=== PATIENT | female | born 1975 | race Caucasian/White ===

== ENCOUNTER 2019-04-27 09:34 | Outpatient (CLI) | payer OTHER, SELFPAY ==
[2019-04-27 10:30] LABS: Hemoglobin 13.1 g/dL (12.0-15.0)
== END 2019-04-27 09:35 | disposition home or self-care (01) ==
PROVIDERS: Anesthesiology; Visit Provider Obstetrics & Gynecology
DX: Z01.818 Encounter for other preprocedural examination (principal)
CPT/HCPCS: 36415; 85014; 85018; 86850; 86900; 86901

== ENCOUNTER 2019-05-06 01:21 | Day surgery (SDC) | payer OTHER, SELFPAY ==
[2019-04-21 09:12] VITALS: BMI 30.2
[2019-05-06] VITALS (16 sets, daily range): BP systolic 88–116; BP diastolic 46–67; PULSE 62–87; RESP 10–18; TEMP 36.3–37.7; O2SAT 97–100
--- NOTE | 2019-05-06 06:44 | WPDANESEPPF ---
Anes - Initial Pre Proc Eval Procedure: Operation Date: 05/06/19 07:30 Proposed Procedures p Total Laparoscopic Hysterectomy with Bilateral Salpingo-Oophorectomy - Kiran Payton MD Date/Time: 05/06/19 06:44 Surgeon: Kiran Payton MD Pre Op Diagnosis: Menometrorrhagia, Leiomyoma of the Uterus Patient Data Age: 43 Gender: F Height: 5 ft 4 in Weight: 80 kg Allergies Allergy/AdvReac Type Severity Reaction Status Date / Time No Known Allergies Allergy Verified 04/21/19 09:10 Home Medications Medication Instructions Recorded Confirmed Type ibuprofen 200 mg PO Q6H PRN 04/21/19 04/21/19 History Patient hx anesthesia problems: post op nausea/vomiting Family hx anesthesia problems: none PMFSH Past Medical History Medical History Anxiety Hx of migraines Anes - Eval Final PreProcedure Day of Procedure 05/06/19 06:44 Patient weight: obese Heart: regular rate and rhythm Lungs: clear to auscultation Airway: Mallampati scale class II Neurological: alert and oriented Last oral intake: >/= 8 hours ASA classification: II Emergent: no Anesthetic plan: proceed Anesthesia type and monitoring: general ETT and standard monitoring Informed Consent: The patient's anesthetic plan and its attendant risks and benefits were discussed with the patient/family/POA. Questions were solicited and answers provided to the satisfaction of the patient/family/POA.
[2019-05-06] MEDS: LACTATED RINGERS 1,000 ML 30 ML IV CONT ×2 (06:45→11:18)
[2019-05-06] MEDS: IBUPROFEN IV 800 MG/200 ML 800 MG/200 ML BAG 400 MG IVPB (07:00)
[2019-05-06] MEDS: SCOPOLAMINE 1.5 MG PATCH TRANSDERM (07:00)
--- NOTE | 2019-05-06 07:54 | WPDHPUPDATE1 ---
History and Physical Update Update Date/Time: 05/06/19 07:54 History and Physical has been reviewed, including an updated exam of the patient. There are NO changes in the patient's condition. Risks, benefits, and alternatives have been discussed and questions answered. Patient agrees to proceed with procedure.
--- NOTE | 2019-05-06 07:55 | WPDHPUPDATE1 ---
History and Physical Update Update Date/Time: 05/06/19 07:55 History and Physical has been reviewed, including an updated exam of the patient. There are NO changes in the patient's condition. Risks, benefits, and alternatives have been discussed and questions answered. Patient agrees to proceed with procedure.
[2019-05-06] MEDS: ceFAZolin 2 GM/D5W 50 ML 2 GM/50 ML BAG IVPB (07:58)
--- NOTE | 2019-05-06 11:19 | PM.PROC ---
Procedure Note - Detailed Date of procedure: 05/06/19 Pre-op diagnosis: Menometrorrhagia, Leiomyoma of the Uterus Myoma Post-op diagnosis: same Procedure performed: Total laparoscopic hysterectomy. Description of procedure: The patient was taken to the operating room. She was prepped and draped in the dorsal lithotomy position. A speculum was placed in the vagina. The cervix was grasped with a tenaculum. Stay sutures were placed at 3 and 9:00 a.m. of 0 Vicryl. The stay sutures were brought through the Cheri up. The LILY manipulator was placed in the vagina with a fixed Cheri cup. The cup was then pushed up around the cervix. The sutures were tied to the handle of the LILY manipulator. A 5 mm incision was made on the abdominal skin of the left upper quadrant using a scalpel. A 5 mm trocar was inserted into the intra-abdominal cavity under direct visualization the scope. Pneumoperitoneum was achieved. An 11 mm incision was made in the left lower quadrant of the abdomen with a scalpel. A 11 mm trocar was inserted into the intra-abdominal cavity under direct visualization the scope. A 5 mm periumbilical incision was made. A 5 mm scope was placed into the intra-abdominal cavity under direct visualization of the scope. The suspensory ligament of the ovary was cauterized and transected with ligature cautery in a bilateral fashion. The fallopian tubes were cauterized and transected in a bilateral fashion with LigaSure cautery. The round ligaments were cauterized and transected in bilateral fashion with LigaSure cautery. The round ligaments were cauterized and transected bilaterally with LigaSure cautery. The broad ligaments were cauterized and transected along the lateral aspects of the uterus down the level of the uterine arteries. A bladder flap was created using sharp and blunt dissection. The ureters were dissected out bilaterally down to the level of the uterine arteries. They could be visualized from the pelvic brim down the uterine arteries. The uterus was amputated. The cervix was transected with unipolar cautery. In the fibroids and uterus were from the cervix. The uterus was then bifurcated in the midline of the uterus down from the fundus to the cervix. The fibroid in the superior left fundus was . It was approximately 7 cm. It was bifurcated but remained in 1 piece with a thick attachment between the 2 hemispheres. Sutures were then placed in each of these large portions of the uterus. Clips were placed on the sutures. The 2 portions of the endometrium were placed in the upper abdomen. Staying very close to the cervix the parametrium was cauterized transected in a stepwise fashion down to the level of the Cheri cup. The Bladder flap was moved distally over the Cheri cup using sharp and blunt dissection. The impression of the entire cup was visualized around the cervix. An incision was made with unipolar cautery down under the Cheri cup creating a colpotomy incision all the way around the cervix. The sutures in the uterine parts were placed around the Coke up and the cervix with coke cup and manipulator were removed from the vagina bringing the sutures into the vagina. These of the sutures were attached to the uterine pieces. The pieces were then withdrawn through the vagina using the sutures and manual manipulation. A pneumo occluder was placed in the vagina. The vagina was closed with 0 V lock suture in a running fashion. The ureters were identified again and found to be intact to the level of the uterine arteries. The pelvis was irrigated with a copious amount of antibiotic irrigation. The pneumoperitoneum was reduced. The trocars were removed. The skin was closed subcuticular 4 Monocryl covered with Dermabond. The pneumo occluder was removed from the vagina. The vagina was irrigated with Betadine. The patient tolerated the procedure well. She was taken to the recovery room in stable condition. Sponge lap and needl
--- NOTE | 2019-05-06 12:09 | SUR.PHASEI ---
1202; REPORT FAXED 120; PT RESTING QUIETLY WITH EYES CLOSED. SPOUSE UPDATED.
[2019-05-06] MEDS: KETOROLAC 30 MG/ML VIAL (*BKC) IV PUSH ×2 (13:33→21:09)
[2019-05-07 04:37] VITALS: BP 106/54; PULSE 81; RESP 17; TEMP 37.2
[2019-05-07 05:21] LABS: Basophils Percent Auto 0.2 % (0.2-1.2); Eosinophils Percent Auto 0.3 % (0-4.4); Hematocrit 34.8 % (37.0-47.0); Hemoglobin 11.5 g/dL (12.0-15.0); Immature Granulocyte Absolute 0.02 K/mm3 (0.00-0.031); Immature Granulocyte Percent A 0.2 % (0-0.5); Lymphocytes Absolute Auto 2.11 K/mm3 (0.9-3.2); Lymphocytes Percent Auto 23.2 % (18.3-44.2); Mean Corpuscular Hemoglobin 29.6 pg (26-34); Mean Corpuscular Volume 89.7 fl (80-100); Mean Platelet Volume 10.4 fl (7.4-10.4); Monocytes Absolute Auto 0.6 K/mm3 (0.1-0.6); Monocytes Percent Auto 6.7 % (2.6-8.5); Neutrophils Absolute Auto 6.3 K/mm3 (1.3-6.7); Neutrophils Percent Auto 69.4 % (45.5-73.1); Platelet Count Result 225 k/mm3 (150-375); Red Blood Count 3.88 M/mm3 (4.2-5.4); Red Cell Distribution Width 12.6 % (11.5-14.5); White Blood Count 9.1 K/mm3 (4.5-10.0)
[2019-05-07 08:20] VITALS: BP 103/60; PULSE 77; RESP 16; TEMP 36.6; O2SAT 98
--- NOTE | 2019-05-07 08:34 | PM.GYNPNOP ---
COMPANY DOCTOR - A/P Assessment and plan (1) Menorrhagia: Code(s): N92.0 - Excessive and frequent menstruation with regular cycle Status: Acute Assessment and Plan: To discharge today, given precautions Postoperative Procedures: Procedures Operation Date: 05/06/19 07:30 Actual Procedures Side Surgeon p Total Laparoscopic Hysterectomy with Bilateral Salpingo Kiran Payton MD Postoperative day: 1 Postoperative status: doing well Postoperative plan: see orders Time Spent With Patient Time: Total time spent is greater than 50% in coordination of care (as documented) at patient's floor/unit and/or counseling patient: Time with patient: less than 15 minutes COMPANY DOCTOR- PN:Subj Post-Op Subjective Date/time seen: 05/07/19 08:34 Subjective: patient reports feeling better, patient has no complaints and pain is well controlled Exam Const: General: healthy appearing, comfortable and no acute distress Resp: Auscultation: clear to auscultation bilaterally, no rales, no rhonchi and no wheezes Cardio: Rate: regular rate Heart sounds: no click, no murmurs and no rubs GI: Inspection: non-distended Auscultation: normal bowel sounds Extrem: General: normal to inspection, no pedal edema and no calf tenderness COMPANY DOCTOR - PN: Obj Data Vital Signs Vital Signs: Vital Signs - 24 hr 05/06/19 11:18 05/06/19 11:30 05/06/19 11:45 Temperature 97.3 F L 97.5 F L 97.8 F Pulse Rate 68 68 68 Respiratory Rate 10 L 12 14 Blood Pressure 115/55 L 116/67 101/46 L Pulse Oximetry 100 100 99 05/06/19 12:00 05/06/19 12:15 05/06/19 12:26 Temperature 97.8 F 98.3 F Pulse Rate 67 67 62 Respiratory Rate 12 14 16 Blood Pressure 114/60 114/60 110/52 L Pulse Oximetry 97 97 99 05/06/19 12:30 05/06/19 12:45 05/06/19 13:00 Temperature Pulse Rate 68 70 70 Respiratory Rate 16 16 16 Blood Pressure 109/56 L 108/52 L 106/54 L Pulse Oximetry 99 97 97 05/06/19 13:30 05/06/19 15:00 05/06/19 15:10 Temperature 98 F 98.9 F Pulse Rate 81 75 75 Respiratory Rate 16 16 16 Blood Pressure 105/50 L 100/55 L 104/53 L Pulse Oximetry 98 99 98 05/06/19 17:08 05/06/19 20:59 05/06/19 23:15 Temperature 97.8 F 99.9 F H 99.3 F Pulse Rate 87 79 76 Respiratory Rate 16 17 18 Blood Pressure 96/51 L 88/49 L 105/50 L Pulse Oximetry 98 05/07/19 04:37 Temperature 98.9 F Pulse Rate 81 Respiratory Rate 17 Blood Pressure 106/54 L Pulse Oximetry Intake/Output Intake/Output: Intake & Output 05/04/19 05/05/19 05/06/19 05/07/19 23:59 23:59 23:59 23:59 Intake Total 850 1000 Output Total 350 1200 Balance 500 -200 Meds/Results Medications: Active Medications Generic Name Dose Route Start Last Admin Trade Name Freq PRN Reason Stop Dose Admin Hydrocodone Bitart/Acetaminophen 1 tab 05/06/19 12:17 [place] 5-325 Mg PO Q3H PRN Pain Rated 5 or Less Hydrocodone Bitart/Acetaminophen 1 tab 05/06/19 12:17 [place] 10-325 Mg PO Q3H PRN Pain Rated 6 or Greater Ibuprofen 600 mg 05/06/19 12:17 Motrin PO Q6H PRN Cramping Ketorolac Tromethamine 30 mg 05/06/19 12:17 05/06/19 21:09 Toradol Inj IV PUSH 05/11/19 12:18 30 mg Q6H PRN Administration Pain Rated 4-6 Morphine Sulfate 4 mg 05/06/19 12:17 Morphine Sulfate Inj IV PUSH Q4H PRN Severe breakthrough pain Naloxone HCl 0.1 mg 05/06/19 12:17 Narcan IV PUSH Q2M PRN Respiratory rate less than 10 Ondansetron HCl 4 mg 05/06/19 12:17 Zofran Inj IV PUSH Q6H PRN Nausea And Vomiting Labs CBC & Chem 7: 05/07/19 04:50 Labs: Laboratory Results - last 24 hr 05/07/19 04:50 WBC 9.1 RBC 3.88 L Hgb 11.5 L Hct 34.8 L MCV 89.7 MCH 29.6 MCHC 33.0 RDW 12.6 Plt Count 225 MPV 10.4 Immature Gran % (Auto) 0.2 Neut % (Auto) 69.4 Lymph % (Auto) 23.2 [place] % (Auto) 6.7 Eos % (Auto) 0.3 Baso % (Auto) 0.2 Lymph # (Auto) 2.11 [place] # (Auto) 0.6 Eos # (Au
--- NOTE | 2019-05-07 09:14 | WPDANESPN ---
Anes - Prog Note Post-Op Date/Time: 05/07/19 09:14 Cardiovascular status: normal Respiratory status: normal Airway patency: baseline Mental status: baseline Post-Op hydration status: normal Vital Signs: Last Vital Signs Temp 37.2 C 05/07/19 04:37 Pulse 81 05/07/19 04:37 Resp 17 05/07/19 04:37 BP 106/54 L 05/07/19 04:37 Pulse Ox 98 05/06/19 17:08 Pain Score (VAS): 0/10. Patient resting in bed at time of assessment, appears comfortable. I/O: Intake & Output 05/06/19 05/07/19 05/07/19 23:59 07:59 15:59 Intake Total 400 1000 Output Total 250 1200 400 Balance 150 -200 -400 Laboratory Tests 05/07/19 04:50 05/07/19 04:50 WBC 9.1 RBC 3.88 L Hgb 11.5 L Hct 34.8 L MCV 89.7 MCH 29.6 MCHC 33.0 RDW 12.6 Plt Count 225 MPV 10.4 Immature Gran % (Auto) 0.2 Neut % (Auto) 69.4 Lymph % (Auto) 23.2 [place] % (Auto) 6.7 Eos % (Auto) 0.3 Baso % (Auto) 0.2 Lymph # (Auto) 2.11 [place] # (Auto) 0.6 Eos # (Auto) 0.0 Baso # (Auto) 0.0 Abs Immat Gran (auto) 0.02 Absolute Neuts (auto) 6.3 Absolute Nucleated RBC 0.0 Nucleated RBC % 0.0 Post-procedural complaints: none Patient Feedback: Patient satisfied with anesthetic care.
== END 2019-05-07 10:40 | disposition home or self-care (01) ==
LOC: ANHSURGERY 06:12 → ANHOB2 13:00
PROVIDERS: Visit Provider Obstetrics & Gynecology
PROC: 0UT9FZZ Resection of Uterus, Via Natural or Artificial Opening With Percutaneous Endoscopic Assistance (ICD-10-PCS; CPT 58571; principal; 2019-05-06 07:30)
DX: N92.1 Excessive and frequent menstruation with irregular cycle (principal); D25.1 Intramural leiomyoma of uterus; D25.2 Subserosal leiomyoma of uterus; F41.9 Anxiety disorder, unspecified; E66.9 Obesity, unspecified; Z68.30 Body mass index [BMI] 30.0-30.9, adult
CPT/HCPCS: 58571; 36415; 85025; 88307; 99199; A9270; J0690; J1100; J1170; J1741; J1885; J2250; J2405; J2704; J2710; J3010; J7030; J7120

== ENCOUNTER 2021-03-08 01:14 | Day surgery (SDC) | payer OTHER, SELFPAY ==
[2021-03-07 07:55] VITALS: BMI 33.3
--- NOTE | 2021-03-07 08:08 | PC.NURSE ---
Report to the Outpatient Waiting Room, entrance under the green pavilion located off [facility], at time 0830 on date 03/08/21. OR Time: 1030. - You will be asked a series of questions to screen for COVID 19 for your protection. - A mask is required within the hospital. - No visitors are allowed at this time. Preoperative COVID Testing Requirements: No COVID Test needed if: (proof is required; if not received patient will have Rapid Test prior to entry) - Patient has received COVID Vaccine at least 14 days prior to procedure date or - Patient has positive COVID test result within last 90 days of surgery date. COVID Test needed if above criteria is not met Patients may have clear liquids (water, carbonated beverages, clear teas, apple juice) until 3 hours prior to surgery with a maximum of 20 ounces. - No food from midnight until time of surgery Take the following medications with a SIP of water the morning of surgery: PAIN PILL (IF NEEDED) Medications to discontinue per physician: N/A Date to take last dose: N/A Please no make-up, nail dominican, hairspray, perfume, deodorant, or body powder the day of surgery. No jewelry (including any body piercings) or valuables the day of surgery, leave them at home. Please take a shower or bath the night before, or the morning of, surgery with an antibacterial soap. Wear comfortable, loose fitting clothing. - Jewelry must be removed prior to entering the operating room. Rings and piercings that are not removed may be cut off. - The hospital will not accept responsibility for valuables. - Please leave all valuables, including medications, at home the day of surgery. If you are going home after surgery, a licensed patrol driver must drive you home. - NO public transportation without another adult. - We recommend that an adult stay with you for 24 hours following discharge. - We also recommend that you do not drive, make important decision, drink alcoholic beverages, or take any drugs that were not prescribed by your health care provider for at least 24 hours after your discharge time. Follow any additional instructions given to you from your surgeon. Telephone instructions given to RASHEEDA BRONSON and asked if any additional questions and then verbalized understanding. Patient advised to call surgeon office or pre surgery nurse liaison [phone] if any additional questions.
[2021-03-08] VITALS (9 sets, daily range): BP systolic 108–124; BP diastolic 60–75; PULSE 58–81; RESP 6–17; TEMP 36.3–36.5; O2SAT 97–100
[2021-03-08] MEDS: ACETAMINOPHEN 500 MG TABLET 1000 MG PO (08:42)
--- NOTE | 2021-03-08 08:44 | WPDHPUPDATE1 ---
History and Physical Update Update Date/Time: 03/08/21 08:44 History and Physical has been reviewed, including an updated exam of the patient. There are NO changes in the patient's condition. Risks, benefits, and alternatives have been discussed and questions answered. Patient agrees to proceed with procedure.
[2021-03-08] MEDS: LACTATED RINGERS 1,000 ML 30 ML IV CONT ×2 (09:00→10:43)
[2021-03-08] MEDS: KETOROLAC 15 MG/ML VIAL (*BKC) IV PUSH (09:01)
--- NOTE | 2021-03-08 09:05 | P.PNAN_ITS ---
Anes - Initial Pre Proc Eval Procedure: Operation Date: 03/08/21 10:30 Proposed Procedures p Diagnostic Laparoscopy - Kiran Payton MD Date/Time: 03/08/21 09:05 Surgeon: Kiran Payton MD Pre Op Diagnosis: Pelvic and Perineal Pain Patient Data Age: 45 Gender: F Height: 1.63 m Weight: 88.6 kg Allergies Allergy/AdvReac Type Severity Reaction Status Date / Time No Known Allergies Allergy Verified 03/08/21 08:38 Home Medications Medication Instructions Recorded Confirmed Type ibuprofen 200 mg PO Q6H PRN 04/21/19 03/08/21 History hydrocodone-acetaminophen 1 - 2 tablet PO Q4H PRN #25 tablet 05/07/19 03/08/21 Rx Patient hx anesthesia problems: post op nausea/vomiting Family hx anesthesia problems: none Results Review: All pre-operative results and documents have been reviewed as part of the pre-operative evaluation. [facility] Past Medical History Medical History (Updated 03/08/21 @ 09:08 by Gustavo Callahan DO) Anxiety Hx of migraines PONV (postoperative nausea and vomiting) Social History Social History Smoking status: Never smoker Alcohol intake: never Substance use: never Substance use type: does not use Living arrangements: with family Spiritual care concerns: No Anes - Eval Final PreProcedure Day of Procedure 03/08/21 09:05 Patient weight: obese Heart: regular rate and rhythm Lungs: clear to auscultation and normal air movement Airway: Mallampati scale class II Neurological: alert and oriented Last oral intake: >/= 8 hours ASA classification: II Anesthetic plan: proceed Anesthesia type and monitoring: general ETT and standard monitoring Results Review: All pre-operative results and documents have been reviewed as part of the pre-operative evaluation. Informed Consent: The patient's anesthetic plan and its attendant risks and benefits were discussed with the patient/family/POA. Questions were solicited and answers provided to the satisfaction of the patient/family/POA.
[2021-03-08] MEDS: SCOPOLAMINE 1.5 MG PATCH TRANSDERM (09:30)
--- NOTE | 2021-03-08 10:33 | W.PM.PROC2 ---
Procedure Note - Detailed Date of Procedure 03/08/21 Pre-op Diagnosis Pelvic, pelvic hematoma Post-op Diagnosis same (Left ovarian torsion) Procedure Performed Diagnostic laparoscopy, left salpingo-oophorectomy Surgeon Kiran Payton MD Anesthesia general Indications Pelvic pain, pelvic fluid/blood collection Findings There was a very large, 8 cm, engorged left ovary/large hematoma with adnexal torsion Description of Procedure The patient was taken to the operating room. She was prepped and draped in the dorsal lithotomy position after induction general anesthesia. A 5 mm incision was made with a scalpel on the abdominal skin in the left upper quadrant of the abdomen. A 5 mm trocar was inserted into the intra-abdominal cavity under direct visualization the scope. In the same fashion an 11 mm left lower quadrant incision was made and a 11 mm trocar was inserted the intra-abdominal cavity and fashion. The pelvis examined the above findings were noted. The large mass was untwisted at the left infundibulopelvic ligament. The left ureter was dissected out and visualized underneath this mass. The stalk 1 which the mass was connected was cauterized transected with LigaSure cautery. The mass was then placed in endobag and taken out the left lower quadrant trocar site. The ureter was examined again and found to be intact. The pelvis was irrigated. The pneumoperitoneum was reduced. The trocars were removed. Skin was closed with subcuticular 4 micro. The patient's incisions were covered with Dermabond. She was taken recovery room in stable condition. Sponge lap and needle counts were correct x2. Estimated Blood Loss 50 Pathology yes Complications No immediate complications Condition stable Disposition same day
[2021-03-08] MEDS: ONDANSETRON INJ 4 MG/2 ML VIAL IV PUSH (12:11)
== END 2021-03-08 12:46 | disposition home or self-care (01) ==
PROVIDERS: Visit Provider Obstetrics & Gynecology
PROC: (CPT 49320; principal; 2021-03-08 10:30)
DX: N83.512 Torsion of left ovary and ovarian pedicle (principal); R10.2 Pelvic and perineal pain; E66.9 Obesity, unspecified; Z68.33 Body mass index [BMI] 33.0-33.9, adult
CPT/HCPCS: 58661; 88305; A9270; J1885; J2250; J2270; J2405; J7030; J7120